=== PATIENT | male | born 1960 | race Caucasian/White ===

== ENCOUNTER → 2017-05-22 | Outpatient (CLI) | payer BC ==
[~2017-05-22] MED LIST: IBUP800T23 PO; ULTR50TA5 PO
--- NOTE | 2017-05-23 15:57 | HM ---
Date Performed: 05/22/2017 Time Performed: 08:39:00 HOOKUP DATE: 05/22/17 08:39:00 AM Mon ANALYSIS START TIME: 05/22/2017 8:44:00 AM ANALYSIS END TIME: 05/23/2017 8:14:05 AM PATIENT AGE: 57 PATIENT HEIGHT PATIENT WEIGHT DRUG LIST PATIENT DIAGNOSIS: palpitations TEST NARRATIVE: The patient's average heart rate was 80 BPM. Heart rates greater than 120 B PM were noted 2% of the time. Heart rates less than 50 BPM were noted < 1% of the time. No pause s exceeding 2.0 seconds were noted. 86 ventricular ectopics, which represented < 1% of the total beat count, were noted. The highest ventricular ectopic frequency occurred from 03:00 PM to 04:00 PM Mon. During this time 30 VE(s) occurred. Ventricular ectopics were observed as 86 isolated beat(s) only. No couplets or runs were noted. 485 supraventricular ectopics, which represented < 1% of the total beat count, were noted. The highest supraventricular ectopic frequency occurred from 12:00 PM to 01:00 PM Mon. During this time 146 SVE(s) occurred. No episodes of ST depression (defined as -1.0 mm or more) were noted in channel 1. No episodes of ST depression (defined as -1.0 mm or mo re) were noted in channel 2. No episodes of ST depression (defined as -1.0 mm or more) were noted in channel 3. NO DIARY ENTRIES MADE TEST INTERPRETATION: Patient undergoes holter monitor to evaluate complaints of palpitations. No diary entries are made, so it is presumed that he is asyptomatic during the monitoring session. Only the expanded tracings are subject to interpretation. Patient is in Sinus rhythm throughout the monitoring session, but there are episodes of sinus tachycardia, up to 152 beats per minute. There are a few rare episodes of three beats of nonsustained supraventricular tachycardia. Ra re PACs and PVCs are noted. No bradycardias are noted, with a minimum heart rate of 50 beats per tr te. Conclusions: 1) relatively normal holter with normal sinus rhythm, except for episodes of sinus t achycardia up to 152 beats per minute, 2) no diary entries are made, so it is unknown as to whether t he sinus tachycardia correlates with symptoms for activity, 3) occassional PACs and PVCs, 4) no signi ficant tachyarrhythmias or bradyarrhythmias, 5) no diary entries are made, so it is assumed that the patient is asymptomatic. Signed b y : Starr Clarke
== END ==
LOC: HCAV 08:28
PROVIDERS: ATTEND Family Medicine
DX: R00.2 Palpitations (principal); R53.83 Other fatigue; R06.02 Shortness of breath
CPT/HCPCS: 93225; 93226